=== PATIENT | female | born 1980 | race Caucasian/White ===

== ENCOUNTER 2019-07-13 12:59 | Outpatient (CLI) | payer BC ==
--- NOTE | 2019-07-13 17:10 | CT ---
CT of the paranasal sinuses: 07/13/2019 COMPARISON: None HISTORY: Headaches, allergies TECHNIQUE: Axial CT imaging at 2 mm intervals through the paranasal sinuses without contrast. Coronal and sagittal reformatted imaging obtained. FINDINGS: The imaged brain parenchyma appears grossly unremarkable. The nasal bones, zygomatic arches, and the pterygoid plates appear intact. The mastoid air cells are well aerated. The sphenoid sinuses, maxillary sinuses, ethmoid air cells, a nd frontal sinuses are well aerated. The orbital floor and the medial orbital wall is intact bilaterally. There are no air-fluid levels wi thin the paranasal sinuses. The outflow tract of the bilateral maxillary sinuses and frontal sinuses are clear. There is minimal nasal septal deviation anteriorly to the left and posteriorly to the right. There is a small alex bullosa on the right. No acute osseous abnormality. IMPRESSION: No significant paranasal sinus disease.
== END 2019-07-13 13:00 | disposition home or self-care (01) ==
LOC: SCSCT 12:59
PROVIDERS: ATTEND Family Medicine
DX: G44.209 Tension-type headache, unspecified, not intractable (principal); J30.9 Allergic rhinitis, unspecified; J32.9 Chronic sinusitis, unspecified; M26.629 Arthralgia of temporomandibular joint, unspecified side

== ENCOUNTER 2022-01-10 09:08 | Outpatient (CLI) | payer BC | END 2022-01-10 09:09 | disposition home or self-care (01) | LOC: CTENTCT 09:08 | PROVIDERS: ATTEND Student in an Organized Health Care Education/Training Program | DX: J32.9 Chronic sinusitis, unspecified (principal) | CPT/HCPCS: 70486 ==